=== PATIENT | male | born 1970 | race Caucasian/White ===

== ENCOUNTER 2017-04-11 13:17 | Emergency (ER) | payer OTHER ==
[2008-04-03 03:58] VITALS: BP 125/78
[~2017-04-11] VITALS: Ht 170.2 cm; Wt 127.7 kg
[~2017-04-11 13:17] MED LIST: ACIPHEX20 MG PO; CEFACLOR ER500 MG PO; DILAUDID4 MG PO; EFFEXOR25 M1 PO; HYDROCODONE/APAP; LORTAB 5/500 501 TAB PO; MOTRIN800 MG PO; PHENERGAN W/CO480 ML PO; VICODIN 5/5001 UDTAB PO; [UNRECOGNIZED DRUG - OTHER]; [UNRECOGNIZED DRUG - OTHER]
[2017-04-11 13:18] VITALS: BP 166/80; PULSE 57; TEMP 98.8
[2017-04-11] MEDS ORDERED: PERCOCET 325 MG1 TA2 PO (13:37)
[2017-04-11 13:52] LABS: BASO # 0.1 (0.0-0.2); BASO % 0.8 % (0.0-2.0); EOS # 0.3 (0.0-0.7); EOS % 3.3 % (0-4.0); GRAN # 4.8 (1.4-6.5); GRAN % 56.9 % (42.2-75.2); HEMATOCRIT 42.9 % (42.0-52.0); HEMOGLOBIN 14.3 g/dl (13.5-18.0); LYMPH # 2.6 (1.2-3.4); LYMPH % 31.1 % (20.0-51.0); MEAN CELL VOLUME 86 fl (80.0-100.0); MEAN CORPUSCULAR HEMOGLOBIN 29 pg (27.0-31.0); MEAN CORPUSCULAR HGB CONC 33 g/dl (33.0-37.0); MEAN PLATELET VOLUME 10.7 fl (7.4-10.4); MONO # 0.6 (0.1-0.6); MONO % 7.4 % (1.7-9.3); PLATELET COUNT 188 K/mm3 (130-400); RED BLOOD COUNT 5.02 M/mm3 (4.20-5.60); REDCELL DISTRIBUTION WIDTH-CV 12.6 % (11.5-14.5); WHITE BLOOD COUNT 8.4 K/mm3 (4.8-10.8)
[2017-04-11 14:05] LABS: ADJUSTED CALCIUM 10.4 mg/dL (8.4-10.2); ALBUMIN 4.1 gm/dL (3.5-5.0); BILIRUBIN,TOTAL 1.1 mg/dL (0.0-1.0); CALCIUM 10.5 mg/dL (8.4-10.2); CREATININE, serum 0.91 mg/dL (0.66-1.25); POTASSIUM 3.9 mmol/L (3.4-5.0); TOTAL PROTEIN 6.7 gm/dL (6.4-8.2)
[2017-04-11 14:32] LABS: PH 5 (5-8); SQUAMOUS EPITHELIAL None Seen /hpf; URINE APPEARANCE Clear; URINE BACTERIA None Seen /hpf; URINE BILIRUBIN Negative (NEGATIVE); URINE BLOOD Negative (NEGATIVE); URINE COLOR Yellow; URINE GLUCOSE Negative (NEGATIVE); URINE KETONE Negative (NEGATIVE); URINE RBC 0-2 /hpf; URINE UROBILINOGEN Negative (NEGATIVE); URINE WBC 0-2 /hpf
== END 2017-04-11 15:26 | disposition home or self-care (01) ==
LOC: COL.ER 13:17
PROVIDERS: Emergency Medicine
DX: R60.0 Localized edema (principal)

== ENCOUNTER 2018-04-28 11:06 | Emergency (ER) | payer OTHER ==
[2008-04-03 03:58] VITALS: BP 125/78
[~2018-04-28] VITALS: Ht 170.2 cm; Wt 114.1 kg
[~2018-04-28 11:06] MED LIST changes: +PERCOCET 325 MG1 TA2 PO
[2018-04-28 11:11] VITALS: TEMP 98.3
[2018-04-28] MEDS ORDERED: NEURONTIN600 MG/TAB PO (11:24)
[2018-04-28] MEDS ORDERED: ULTRAM 50MG TAB50 MG PO (11:25)
[2018-04-28 11:27] LABS: COLLECTION METHOD CLEAN CATCH
[2018-04-28 11:39] LABS: BASO # 0.1 (0.0-0.2); BASO % 0.9 % (0.0-2.0); EOS # 0.1 (0.0-0.7); EOS % 1.1 % (0-4.0); HEMATOCRIT 45.8 % (42.0-52.0); HEMOGLOBIN 15.7 g/dl (13.5-18.0); MEAN CELL VOLUME 83 fl (80.0-100.0); MEAN CORPUSCULAR HEMOGLOBIN 28 pg (27.0-31.0); MEAN CORPUSCULAR HGB CONC 34 g/dl (33.0-37.0); MONO # 0.5 (0.1-0.6); MONO % 6.6 % (1.7-9.3); PLATELET COUNT 161 K/mm3 (130-400); RED BLOOD COUNT 5.52 M/mm3 (4.20-5.60); REDCELL DISTRIBUTION WIDTH-CV 12.5 % (11.5-14.5)
[2018-04-28 11:44] LABS: MUCOUS Present /lpf; PH 5 (5-8); SQUAMOUS EPITHELIAL None Seen /hpf; URINE APPEARANCE Cloudy; URINE BACTERIA None Seen /hpf; URINE BILIRUBIN Negative (NEGATIVE); URINE BLOOD 3+ (NEGATIVE); URINE COLOR Amber; URINE GLUCOSE Negative (NEGATIVE); URINE KETONE Negative (NEGATIVE); URINE LEUKOCYTE ESTERASE Negative (NEGATIVE); URINE NITRATE Negative (NEGATIVE); URINE PROTEIN(semi-quant) 2+ (NEGATIVE); URINE RBC >50 /hpf; URINE UROBILINOGEN Negative (NEGATIVE)
[2018-04-28 11:53] LABS: ALBUMIN 4.2 gm/dL (3.5-5.0); BILIRUBIN,TOTAL 1.5 mg/dL (0.0-1.0); C-REACTIVE PROTEIN 0.6 mg/dL (0.0-0.9); CALCIUM 11.2 mg/dL (8.4-10.2); CREATININE, serum 0.75 mg/dL (0.66-1.25); POTASSIUM 4.2 mmol/L (3.4-5.0); TOTAL PROTEIN 7.4 gm/dL (6.4-8.2)
[2018-04-28] MEDS ORDERED: NORCO 325 MG-51 TAB PO (14:17)
[2018-04-28] MEDS ORDERED: ZOFRAN ODT4 MG PO (14:17)
[2018-04-28 14:32] VITALS: BP 152/78; PULSE 50
[2018-04-29 00:04] LABS: PTH,INTACT 251.4 pg/mL (6.6-88.9)
[2018-04-29 01:14] LABS: CALCIUM, IONIZED, SERUM 1.58 mmol/L (1.19-1.41)
== END 2018-04-28 14:34 | disposition home or self-care (01) ==
LOC: COL.ER 11:06
PROVIDERS: Emergency Medicine
DX: N20.2 Calculus of kidney with calculus of ureter (principal); Z87.442 Personal history of urinary calculi
CPT/HCPCS: J7030; Q9967

== ENCOUNTER → 2018-07-29 | Outpatient (CLI) | payer OTHER ==
[~2018-07-29] MED LIST changes: +NEURONTIN600 MG/TAB PO; +NORCO 325 MG-51 TAB PO; +ULTRAM 50MG TAB50 MG PO; +ZOFRAN ODT4 MG PO
== END ==
LOC: COL.RAD 10:13
DX: E21.3 Hyperparathyroidism, unspecified (principal)
CPT/HCPCS: A9500

== ENCOUNTER 2019-03-31 09:44 | Outpatient (RCR) | payer OTHER | END 2019-06-29 | LOC: WSPT | DX: Z09 Encounter for follow-up examination after completed treatment for conditions other than malignant neoplasm (principal) ==

== ENCOUNTER → 2019-12-15 | Outpatient (CLI) | payer OTHER | LOC: COL.RAD 14:45 | DX: S89.91XD Unspecified injury of right lower leg, subsequent encounter (principal) ==

== ENCOUNTER → 2019-12-27 | Outpatient (CLI) | payer OTHER | LOC: COL.RAD 09:58 | DX: S83.241A Other tear of medial meniscus, current injury, right knee, initial encounter (principal); S89.91XD Unspecified injury of right lower leg, subsequent encounter ==